=== PATIENT | female | born 1985 | race Caucasian/White ===

== ENCOUNTER 2018-04-19 05:41 | Day surgery (SDC) | payer OTHER ==
[~2018-04-19 05:41] MED LIST: CEPH-368 PO; DOCU-131 PO; IBUP-1222 PO; IBUP200T49 PO; LORA10TA75 PO; NITR100C56 PO; OXYC-302 PO; PREN1TAB56 PO
[2018-04-19] MEDS ORDERED: LACTATED RINGERS 1,000 ML IV SCH (06:09)
[2018-04-19] MEDS ORDERED: LIDOCAINE-MPF 1%, 2ML INFIL ONE (06:30)
[2018-04-19 06:39] LABS: BASOPHILS # (AUTO) 0.02 x10^3/uL (0-0.1); BASOPHILS % (AUTO) 0 % (0-1); EOSINOPHILS # (AUTO) 0.05 x10^3/uL (0-0.4); EOSINOPHILS % (AUTO) 1 % (1-7); LYMPHOCYTES # (AUTO) 1.92 x10^3/uL (1-3.4); LYMPHOCYTES % (AUTO) 26 % (22-44); MD NO; MEAN CORPUSCULAR HEMOGLOBIN 30.7 pg (27.0-34.8); MEAN CORPUSCULAR HGB CONC 33.4 g/dL (32.4-35.8); MEAN CORPUSCULAR VOLUME 91.9 fL (80-100); MEAN PLATELET VOLUME 7.8 fL (7.4-10.4); MONOCYTES % (AUTO) 4 % (2-9); NEUTROPHILS # (AUTO) 5.04 x10^3/uL (1.8-6.8); NEUTROPHILS % (AUTO) 69 % (42-75); PLATELET COUNT 434 x10^3/uL (130-400); RED BLOOD COUNT 4.05 x10^6/uL (3.82-5.3); RED CELL DISTRIBUTION WIDTH 13.5 % (9.6-15.2)
[2018-04-19] MEDS ORDERED: PROPOFOL 50 ML ONE (07:02)
[2018-04-19] MEDS ORDERED: FENTANYL PF 100 MCG/2ML ONE ×2 (07:02→08:46)
[2018-04-19] MEDS ORDERED: MIDAZOLAM 1 MG/ML, 2ML ONE (07:03)
[2018-04-19] MEDS ORDERED: METHYLERGONOVINE 0.2 MG/ML IM ONE (07:21)
[2018-04-19] MEDS ORDERED: MISOPROSTOL 200 MCG TABLET ONE (07:21)
[2018-04-19] MEDS ORDERED: OXYTOCIN 10 UNITS/ML, 1ML ONE (07:21)
[2018-04-19] MEDS ORDERED: SILVER NITRATE STICK TP ONE (07:21)
[2018-04-19] MEDS ORDERED: KETOROLAC 30 MG/1 ML ONE (07:46)
[2018-04-19] MEDS ORDERED: PROCHLORPERAZINE 5 MG/ML, 2ML IV PRN (08:00)
[2018-04-19] MEDS ORDERED: DIPHENHYDRAMINE 50 MG/ML, 1ML IVPush PRN (08:00)
[2018-04-19] MEDS ORDERED: MEPERIDINE/PF 25MG/0.5ML IVPush PRN (08:00)
[2018-04-19] MEDS ORDERED: OXYcodone 5 MG/5 ML ORAL.SOL UDC PO PRN (08:00)
[2018-04-19] MEDS ORDERED: ONDANSETRON ODT 8 MG PO PRN (08:00)
[2018-04-19] MEDS ORDERED: EPHEDRINE 50 MG/ML, 1ML IM PRN (08:00)
[2018-04-19] MEDS ORDERED: PROMETHAZINE 25 MG/ML, 1ML IV PRN (08:00)
[2018-04-19] MEDS ORDERED: PROMETHAZINE 12.5 MG SUPP PR PRN (08:00)
[2018-04-19] MEDS ORDERED: FENTANYL PF 100 MCG/2ML IV PRN (08:00)
[2018-04-19] MEDS ORDERED: MORPHINE SULFATE 4 MG/ML, 1ML IVPush PRN (08:00)
[2018-04-19] MEDS ORDERED: ACETAMINOPHEN 325 MG TABLET PO PRN (08:00)
[2018-04-19] MEDS ORDERED: PROMETHAZINE 25 MG SUPP PR PRN (08:00)
[2018-04-19] MEDS ORDERED: ONDANSETRON 2MG/ML, 2ML IV PRN (08:00)
[2018-04-19] MEDS ORDERED: MIDAZOLAM 1 MG/ML, 2ML IV PRN (08:00)
[2018-04-19] MEDS ORDERED: ONDANSETRON 2MG/ML, 2ML ONE (08:06)
[2018-04-19] MEDS ORDERED: DEXAMETHASONE 4 MG/ML, 1ML ONE (08:06)
[2018-04-19] MEDS ORDERED: ACETAMINOPHEN 650 MG/20.3 ML UDC ONE (08:37)
[2018-04-19] MEDS ORDERED: OXYcodone 5 MG/5 ML ORAL.SOL UDC ONE (08:37)
== END 2018-04-19 10:30 | disposition home or self-care (01) ==
LOC: OUT 05:41
PROVIDERS: ATTEND Obstetrics & Gynecology
DX: O02.1 Missed abortion (principal); Z3A.01 Less than 8 weeks gestation of pregnancy; Z98.890 Other specified postprocedural states; Z98.51 Tubal ligation status
CPT/HCPCS: 36415; 59820; 85025; 86850; 86900; 88305; J1100; J1885; J2210; J2250; J2405; J2704; J3010; J7120; J2590

== ENCOUNTER 2018-04-25 08:49 | Emergency (ER) | payer OTHER ==
[~2018-04-25] VITALS: Ht 172.7 cm; Wt 75.4 kg
[2018-04-25] MEDS ORDERED: SODIUM CHLORIDE FLUSH 10ML SYR IVF ONE (09:30)
[2018-04-25 09:57] LABS: BASOPHILS # (AUTO) 0.02 x10^3/uL (0-0.1); BASOPHILS % (AUTO) 0 % (0-1); EOSINOPHILS # (AUTO) 0.04 x10^3/uL (0-0.4); EOSINOPHILS % (AUTO) 1 % (1-7); LYMPHOCYTES # (AUTO) 1.66 x10^3/uL (1-3.4); LYMPHOCYTES % (AUTO) 24 % (22-44); MD NO; MEAN CORPUSCULAR HEMOGLOBIN 30.2 pg (27.0-34.8); MEAN CORPUSCULAR VOLUME 91.4 fL (80-100); MEAN PLATELET VOLUME 7.4 fL (7.4-10.4); MONOCYTES # (AUTO) 0.39 x10^3/uL (0.2-0.8); MONOCYTES % (AUTO) 6 % (2-9); NEUTROPHILS # (AUTO) 4.82 x10^3/uL (1.8-6.8); NEUTROPHILS % (AUTO) 69 % (42-75); PLATELET COUNT 435 x10^3/uL (130-400); RED BLOOD COUNT 3.69 x10^6/uL (3.82-5.3); RED CELL DISTRIBUTION WIDTH 12.8 % (9.6-15.2)
[2018-04-25] MEDS ORDERED: SODIUM CHLORIDE 0.9% 1,000ML IVBOLUS ONE (10:00)
[2018-04-25 10:02] LABS: MICROSCOPIC AUTO
[2018-04-25 10:04] LABS: CULTURE INDICATED? NO
[2018-04-25 10:09] LABS: ALANINE AMINOTRANSFERASE 32 U/L (12-78); ALBUMIN 3.3 g/dL (3.4-5.0); ANION GAP 8 mmol/L (5-15); CALCIUM 8.6 mg/dL (8.5-10.1); CHLORIDE 108 mmol/L (98-107); CREATININE 0.76 mg/dL (0.55-1.02)
[2018-04-25 10:27] LABS: ALKALINE PHOSPHATASE 84 U/L (45-117); BILIRUBIN,TOTAL 0.3 mg/dL (0.2-1.0); TOTAL PROTEIN 6.9 g/dL (6.4-8.2)
[2018-04-25 14:43] VITALS: BP 110/82
== END 2018-04-25 15:00 | disposition home or self-care (01) ==
LOC: ED 11:13
DX: K59.00 Constipation, unspecified (principal); N85.8 Other specified noninflammatory disorders of uterus; N85.00 Endometrial hyperplasia, unspecified
CPT/HCPCS: 36415; 74021; 76801; 80053; 81001; 83690; 84702; 84703; 85025; 99285; J7030